=== PATIENT | female | born 1965 | race Caucasian/White ===

== ENCOUNTER → 2019-03-23 | Outpatient (CLI) | payer OTHER ==
--- NOTE | 2019-03-23 12:41 | Diagnostic Imaging Report ---
INDICATION: Followup fracture. COMPARISON: None. FINDINGS: Multiple radiographic views of the right toes were obtained. No appreciable fracture or dislocation of the toes are identified on today's exam. Note is made, however, that evaluation is somewhat suboptimal secondary to superimposition of the osseous structures on multiple views. Joint spaces appear appropriate. No unexpected radiopaque foreign bodies are seen. IMPRESSION: 1. No definite acute osseous abnormality of the toes of the right foot, but again evaluation is obscured by limitations of positioning. Dictated by: Dictated on workstation # [id number]
== END ==
LOC: RAD FS 10:52
PROVIDERS: ATTEND Nurse Practitioner
DX: M79.674 Pain in right toe(s) (principal)
CPT/HCPCS: 73660

== ENCOUNTER → 2020-10-17 | Outpatient (CLI) | payer OTHER ==
--- NOTE | 2020-10-17 10:45 | Diagnostic Imaging Report ---
EXAMINATION: Right hip at 10:00 AM INDICATION: Right hip pain AP and lateral views were obtained. There are no prior studies available for comparison. There is no fracture, dislocation or acute bony abnormality evident. The hip joint is well maintained as is the right sacroiliac joint. The soft tissues are unremarkable. IMPRESSION: There is no evidence for an acute bony abnormality. Dictated by: Dictated on workstation # [id number]
== END ==
LOC: RAD FS 09:52
PROVIDERS: ATTEND Nurse Practitioner
DX: M25.551 Pain in right hip (principal)
CPT/HCPCS: 73502

== ENCOUNTER 2021-11-13 04:28 | Inpatient (IN) | payer OTHER ==
[~2021-11-13] VITALS: Ht 172 cm; Wt 69.0 kg
--- OUTSIDE RECORDS SUMMARY | 2021-11-13 04:33 | XMS REPORT | Clinical Summary ---
Author Author [facility] Organization [facility] Address Unknown Phone Unavailable Care Team Providers Care Spikemaking Supervisor Name Role Phone Ann-Marie Ramirez MD PCP Allergies Not on File Medications Not on file Active Problems Not on file Social History Date Tobacco Use Types Packs/Day Years Used Never Assessed Sex Assigned at Date Recorded Not on file Last Filed Vital Signs Not on file Plan of Treatment Health Maintenance Due Date Last Done Comments Td/Tdap# 1966 Cervical Cancer Screening 1987 via Pap Smear Colorectal Screening via 2016 Colonoscopy Zoster Vaccine# (1 of 2) 2016 Influenza Vaccine (#1) 2021 08/21/2019, 08/15/2018, 08/16/2017, Additional history exists COVID-19 Vaccine (3 - 08/20/2021 02/18/2021, Booster for Moderna 01/21/2021 series) Mammogram Screening 07/23/2023 07/23/2021, 06/10/2020, 06/07/2019, Additional history exists Pneumococcal Vaccine: Aged Out No longer eligib le based on patient's age to Pediatrics (0 to 5 Years) complete this topic and At-Risk Patients (6 to 64 Years) Results Not on filefrom Last 3 Months Insurance Type Payer Benefit Subscriber ID Effective Phone Address Plan / Dates Group [employer] [id number] 2015-P [phone] [address] [address] [place] [address] Advance Directives For more information, please contact: [phone] Patient Scroll Shear Operator Explanation Type Date Recorded Advance Directives and Living Will Power of Tobacco Sorter Health Care Directive Care Teams Start Date End Date Spikemaking Supervisor Relationship Specialty 07/23/21 Ann-Marie Ramirez MD PCP - General Obstetrics [id number] [place], [place] [id number]
--- NOTE | 2021-11-13 04:58 | Diagnostic Imaging Report ---
INDICATION: CP COMPARISON: None FINDINGS: Single frontal view of the chest demonstrates normal heart size and pulmonary vascularity. The lungs are well aerated and clear. No large pleural effusion or pneumothorax is seen. The visualized osseous structures show no acute abnormalities. IMPRESSION: 1. No acute cardiopulmonary process. Dictated by: Dictated on workstation # [id number]
[2021-11-13] MEDS ORDERED: LORazepam INJ 2 MG/ML (ATIVAN) VIAL IVP ONE (05:00)
[2021-11-13] MEDS ORDERED: cloNIDine 0.1 MG (CATAPRES) TAB PO ONE (05:00)
[2021-11-13 05:17] LABS: HEMATOCRIT 41 % (35-52); HEMOGLOBIN 13.3 g/dL (11.5-16.0); MEAN CORPUSCULAR HEMOGLOBIN 27 pg (25-34); MEAN CORPUSCULAR HGB CONC 32 g/dL (32-36); MEAN CORPUSCULAR VOLUME 84 fL (80-99)
[2021-11-13 05:18] LABS: BASOPHILS # (AUTO) 0.1 10^3/uL (0.0-0.1); BASOPHILS % (AUTO) 1 % (0-10); EOSINOPHILS # (AUTO) 0.4 10^3/uL (0.0-0.3); EOSINOPHILS % (AUTO) 6 % (0-10); LYMPHOCYTES # (AUTO) 2.8 X 10^3 (1.0-4.0); LYMPHOCYTES % (AUTO) 40 % (12-44); MEAN PLATELET VOLUME 10.1 fL (9.0-12.2); MONOCYTES # (AUTO) 0.4 X 10^3 (0.0-1.0); MONOCYTES % (AUTO) 6 % (0-12); NEUTROPHILS # (AUTO) 3.2 X 10^3 (1.8-7.8); NEUTROPHILS % (AUTO) 46 % (42-75); PLATELET COUNT 242 10^3/uL (130-400)
[2021-11-13 05:36] LABS: ALKALINE PHOSPHATASE 87 U/L (40-136); BILIRUBIN,TOTAL 0.3 MG/DL (0.1-1.0); BUN/CREATININE RATIO 17; CALCIUM 9.3 MG/DL (8.5-10.1); CARBON DIOXIDE 22 MMOL/L (21-32); CHLORIDE 104 MMOL/L (98-107); CREATININE SERUM 0.78 MG/DL (0.60-1.30); GFR ESTIMATED 77; GLUCOSE 104 MG/DL (70-105); POTASSIUM 3.7 MMOL/L (3.6-5.0); SODIUM 141 MMOL/L (135-145)
[2021-11-13 05:37] LABS: ALANINE AMINOTRANSFERASE 20 U/L (0-55); ALBUMIN 4.4 GM/DL (3.2-4.5); TOTAL PROTEIN 7.1 GM/DL (6.4-8.2)
[2021-11-13] MEDS: NITROGLYCERIN 0.4 MG SL TABS BTL 25'S SL PRN ×2 (05:52→05:58)
--- NOTE | 2021-11-13 06:00 | ED Chest Pain ---
General Chief Complaint: Chest Pain Stated Complaint: CHEST PAIN Nursing Triage Note: pt arrives per POV w/ family c/o CP midsternal onset at approximately 2300 yesterday evening. Source: patient Exam Limitations: no limitations History of Present Illness Date Seen by Provider: Nov 13, 2021 Time Seen by Provider: 04:30 Initial Comments Patient is a 56-year-old female who presents with intermittent chest pressure for the past several weeks. Chest pressure is substernal rated as mild and radiates to left arm. This evening's episode started approximately 5 hours p rior to ED arrival. Patient reports feeling anxious after chest pressure began. She denies shortness of breath, nausea vomiting sweats. Symptoms are not reproducible with position change movement or deep breathing. They are not made worse with exertion or improved by rest. No fevers or chills. No cough or sore throat. Denies leg pain or swelling. No other acute symptoms or complaints. No history of CAD. Denies history of hypertension, dyslipidemia, or diabetes. No family history of early coronary disease. Patient is a non-smoker. Timing/Duration: intermittent Severity/Quality: mild Location: other Radiation: other Activities at Onset: other Prior CP/Workup: other Modifying Factors: improves with other Allergies and Home Medications Allergies Coded Allergies: No Known Drug Allergies (Unverified , 11/13/21) Patient Home Medication List Home Medication List Reviewed: Yes Review of Systems Review of Systems Constitutional: see HPI EENTM: See HPI Respiratory: See HPI Cardiovascular: See HPI Gastrointestinal: See HPI Genitourinary: See HPI Musculoskeletal: see HPI Skin: see HPI Psychiatric/Neurological: See HPI Endocrine: See HPI Hematologic/Lymphatic: See HPI All Other Systems Reviewed Negative Unless Noted: Yes Past Qdbfczc-Hvwjrj-Dqvfsd Hx Patient Social History Tobacco Use?: Yes Substance use?: No Alcohol Use?: Yes Alcohol Frequency: Once in a while Pt feels they are or have been: No Immunizations Up To Date Influenza Vaccine Up-to-Date: Yes; Up-to-Date First/Initial COVID19 Vaccinat: 02-26 Second COVID19 Vaccination Eugenio: 03-28 COVID19 Vaccine Coffee Sommelier: Modernbarry Physical Exam Vital Signs Vital Signs - First Documented 11/13/21 11/13/21 05:10 05:54 Temp 36.6 Pulse 66 Resp 20 B/P (MAP) 190/81 (117) Pulse Ox 97 O2 Delivery Room Air Capillary Refill : Less Than 3 Seconds Height, Weight, BMI Height: '" Weight: lbs. oz. kg; 23.00 BMI Method: General Appearance: No Apparent Distress, Anxious HEENT: Pharynx Normal Neck: Normal Inspection, Non Tender Respiratory: Chest Non Tender, Lungs Clear Cardiovascular: Regular Rate, Rhythm, No Murmur Gastrointestinal: Non Tender, Soft Extremity: Normal Inspection Neurologic/Psychiatric: Alert, Oriented x3 Skin: Normal Color Focused Exam Sepsis Stage: Ruled Out Progress/Results/Core Measures Results/Orders Lab Results Laboratory Tests Test 11/13/21 04:40 Range/Units White Blood Count 7.0 4.3-11.0 10^3/uL Red Blood Count 4.90 3.80-5.11 10^6/uL Hemoglobin 13.3 11.5-16.0 g/dL Hematocrit 41 35-52 % Mean Corpuscular Volume 84 80-99 fL Mean Corpuscular Hemoglobin 27 25-34 pg Mean Corpuscular Hemoglobin Concent 32 32-36 g/dL Red Cell Distribution Width 13.2 10.0-14.5 % Platelet Count 242 130-400 10^3/uL Mean Platelet Volume 10.1 9.0-12.2 fL Immature Granulocyte % (Auto) 0 % Neutrophils (%) (Auto) 46 42-75 % Lymphocytes (%) (Auto) 40 12-44 % Monocytes (%) (Auto) 6 0-12 % Eosinophils (%) (Auto) 6 0-10 % Basophils (%) (Auto) 1 0-10 % Neutrophils # (Auto) 3.2 1.8-7.8 X 10^3 Lymphocytes # (Auto) 2.8 1.0-4.0 X 10^3 Monocytes # (Auto) 0.4 0.0-1.0 X 10^3 Eosinophils # (Auto) 0.4 H 0.0-0.3 10^3/uL Basophils # (Auto) 0.1 0.0-0.1 10^3/uL Immature Granulocyte # (Auto) 0.0 0.0-0.1 10^3/uL Sodium Level 141 135-145 MMOL/L Potassium Level 3.7 3.6-5.0 MMOL/L Chloride Level 104 98-107 MMOL/L Carbon Dioxide Level 22 21-32 MMOL/L Anion Gap 15 H 5-14 MMOL/L Blood Urea Nitrogen 13 7-18 MG/DL Creatinine 0.78 0.60-1.30 MG/DL Estimat Glomerular Filtration Rate 77 BUN/Creatinine Ratio 17 Glucose Level 104 70-105 MG/DL Calcium Level 9.3 8.5-10.1 MG/DL Corrected Calcium 9.0 8.5-10.1 MG/DL Total Bilirubin 0.3 0.1-1.0 MG/DL Aspartate Amino Transf (AST/SGOT) 20 5-34 U/L Alanine Aminotransferase (ALT/SGPT) 20 0-55 U/L Alkaline Phosphatase 87 40-136 U/L Troponin I < 0.30 <0.30 NG/ML Total Protein 7.1 6.4-8.2 GM/DL Albumin 4.4 3.2-4.5 GM/DL My Orders Orders - FELIX ARZOLA DO Cbc With Automated Diff (11/13/21 04:46) Comprehensive Metabolic Panel (11/13/21 04:46) Troponin I Fs (11/13/21 04:46) Chest 1 View Ap/Pa Only (11/13/21 04:46) Ekg-Prn For Chest Pain Or Rhyt (11/13/21 04:46) Lorazepam Injection (Ativan Injection) (11/13/21 05:00) Clonidine Tablet (Catapres Tablet) (11/13/21 05:00) Nitroglycerin 0.4 Mg Btl 25's (Nitrostat (11/13/21 05:45) Ondansetron Injection (Zofran Injectio (11/13/21 06:15) Ondansetron Injection (Zofran Injectio (11/13/21 06:11) Medications Given in ED Current Medications Medications Dose Ordered Sig/Bessie Route Start Time Stop Time Status Last Admin Dose Admin Clonidine HCl 0.1 mg ONCE ONCE PO 11/13/21 05:00 11/13/21 05:01 DC 11/13/21 05:05 0.1 MG Lorazepam 0.5 mg ONCE ONCE IVP 11/13/21 05:00 11/13/21 05:01 DC 11/13/21 05:04 0.5 MG Nitroglycerin 1 TAB Q 5 MIN X 3 NEEDED PRN SL 11/13/21 05:45 11/13/21 05:58 0.4 MG Ondansetron HCl 4 mg ONCE ONCE IVP 11/13/21 06:15 11/13/21 06:16 DC 11/13/21 06:12 4 MG Vital Signs/I&O 11/13/21 11/13/21 11/13/21 11/13/21 05:10 05:30 05:54 05:59 Temp 36.6 36.6 Pulse 66 66 71 78 Resp 20 20 18 17 B/P (MAP) 190/81 (117) 190/81 133/78 127/75 Pulse Ox 97 94 O2 Delivery Room Air Blood Pressure Mean: 96 Departure Communication (Admissions) EKG: Normal sinus rhythm, no acute ST-T wave changes Chest x-ray: No acute cardiopulmonary disease per radiology report Atypical chest pain with anxiety component. Ativan given without improvement. Patient took aspirin prior to ED arrival. Nitroglycerin x2 given with resolution of chest pressure. EKG, troponin unremarkable. Blood pressure stable. Dr. Collado to admit to [facility]. Impression Primary Impression: Chest pain Disposition: ADMITTED INPATIENT Condition: Stable Admissions Decision to Admit Reason: Admit from ER (General) Decision to Admit/Date: Nov 13, 2021 Time/Decision to Admit Time: 06:30 Departure-Patient Inst. Referrals: [facility] (PCP) Primary Care Physician GARRY WHITEHEAD APRN (Family) Primary Care Physician FELIX ARZOLA DO Nov 13, 2021 06:00
[2021-11-13] MEDS ORDERED: ONDANSETRON 4 MG/2 ML (SDV) Z0FRAN ONE (06:11)
[2021-11-13] MEDS ORDERED: ONDANSETRON 4 MG/2 ML (SDV) Z0FRAN IVP ONE (06:15)
[2021-11-13] MEDS ORDERED: NS IV 1000 ML 1,000 ML IV SCH (10:00)
[2021-11-13] MEDS ORDERED: PATIENT MAY USE OWN MEDS, ALL PO SCH (10:00)
[2021-11-13] MEDS ORDERED: ONDANSETRON 4 MG/2 ML (SDV) Z0FRAN IVP PRN (10:00)
[2021-11-13] MEDS ORDERED: morphine INJ 4 MG/ML 1 ML (VIAL/SYRINGE) IV PRN (10:00)
[2021-11-13] MEDS ORDERED: NITROGLYCERIN 0.4 MG SL TABS BTL 25'S SL PRN (10:00)
[2021-11-13 10:16] VITALS: BP 114/71
[2021-11-13 10:31] VITALS: BP 126/82
[2021-11-13 10:46] VITALS: BP 117/66
[2021-11-13 11:16] VITALS: BP 107/71
[2021-11-13 11:37] VITALS: BP 136/87
[2021-11-13 12:23] VITALS: BP 138/88
--- NOTE | 2021-11-13 12:33 | Consultation-Cardiology ---
HPI-Cardiology Cardiology Consultation Date of Consultation 11/13/21 Date of Admission Time Seen by Provider: 12:28 Indication: Chest pain HPI 56-year-old lady with history of hypertension, has been having chest pain described as dull in nature in the retrosternal area lasting for up to 50 minutes, waxing and waning, came into the emergency room this morning, EKG and cardiac enzymes did not show any acute abnormality. On my evaluation she was feeling better denied any active chest pain. Home Medications & Allergies Allergies: Coded Allergies: No Known Drug Allergies (Unverified , 11/13/21) Home Medication List Reviewed: Yes EAE-Asxyoy-Rplinl Hx Patient Social History Marital Status: Employed/Student: employed Smoking Status: Never a Smoker Have you traveled recently?: No Alcohol Use?: No Past Medical History Discussed below Family Medical History Family Medical Hx Family history of atrial fibrillation Review of Systems-General Review of Systems Constitutional: see HPI EENTM: see HPI, no symptoms reported Respiratory: no symptoms reported, see HPI Cardiovascular: see HPI, chest pain; No edema, No Hx of Intervention, No palpitations, No syncope, No vascular heart diseas, No other Gastrointestinal: no symptoms reported, see HPI Genitourinary: no symptoms reported, see HPI Musculoskeletal: see HPI Skin: see HPI Psychiatric/Neurological: See HPI All Other Systems Reviewed Negative Unless Noted: Yes Reviewed Test Results Reviewed Test Results Lab Laboratory Tests Test 11/13/21 04:40 11/13/21 10:30 Range/Units White Blood Count 7.0 4.3-11.0 10^3/uL Red Blood Count 4.90 3.80-5.11 10^6/uL Hemoglobin 13.3 11.5-16.0 g/dL Hematocrit 41 35-52 % Mean Corpuscular Volume 84 80-99 fL Mean Corpuscular Hemoglobin 27 25-34 pg Mean Corpuscular Hemoglobin Concent 32 32-36 g/dL Red Cell Distribution Width 13.2 10.0-14.5 % Platelet Count 242 130-400 10^3/uL Mean Platelet Volume 10.1 9.0-12.2 fL Immature Granulocyte % (Auto) 0 % Neutrophils (%) (Auto) 46 42-75 % Lymphocytes (%) (Auto) 40 12-44 % Monocytes (%) (Auto) 6 0-12 % Eosinophils (%) (Auto) 6 0-10 % Basophils (%) (Auto) 1 0-10 % Neutrophils # (Auto) 3.2 1.8-7.8 X 10^3 Lymphocytes # (Auto) 2.8 1.0-4.0 X 10^3 Monocytes # (Auto) 0.4 0.0-1.0 X 10^3 Eosinophils # (Auto) 0.4 H 0.0-0.3 10^3/uL Basophils # (Auto) 0.1 0.0-0.1 10^3/uL Immature Granulocyte # (Auto) 0.0 0.0-0.1 10^3/uL Sodium Level 141 135-145 MMOL/L Potassium Level 3.7 3.6-5.0 MMOL/L Chloride Level 104 98-107 MMOL/L Carbon Dioxide Level 22 21-32 MMOL/L Anion Gap 15 H 5-14 MMOL/L Blood Urea Nitrogen 13 7-18 MG/DL Creatinine 0.78 0.60-1.30 MG/DL Estimat Glomerular Filtration Rate 77 BUN/Creatinine Ratio 17 Glucose Level 104 70-105 MG/DL Calcium Level 9.3 8.5-10.1 MG/DL Corrected Calcium 9.0 8.5-10.1 MG/DL Total Bilirubin 0.3 0.1-1.0 MG/DL Aspartate Amino Transf (AST/SGOT) 20 5-34 U/L Alanine Aminotransferase (ALT/SGPT) 20 0-55 U/L Alkaline Phosphatase 87 40-136 U/L Troponin I < 0.30 < 0.028 <0.028 NG/ML Total Protein 7.1 6.4-8.2 GM/DL Albumin 4.4 3.2-4.5 GM/DL Physical Exam Physical Exam Vital Signs Vital Signs - First Documented 11/13/21 11/13/21 05:10 05:54 Temp 36.6 Pulse 66 Resp 20 B/P (MAP) 190/81 (117) Pulse Ox 97 O2 Delivery Room Air Capillary Refill : Less Than 3 Seconds Height, Weight, BMI Height: '" Weight: lbs. oz. kg; 23.32 BMI Method: General Appearance: No Apparent Distress, Anxious Eyes: Bilateral Eye Normal Inspection, Bilateral Eye PERRL, Bilateral Eye EOMI HEENT: Pharynx Normal Neck: Normal Inspection, Non Tender Respiratory: Chest Non Tender, Lungs Clear Cardiovascular: Regular Rate, Rhythm, No Murmur Gastrointestinal: Non Tender, Soft Back: Normal Inspection, No CVA Tenderness, No Vertebral Tenderness Extremity: Normal Inspection Neurologic/Psychiatric: Alert, Oriented x3 Skin: Normal Color Lymphatic: No Adenopathy A/P-Cardiology Admission Diagnosis Chest pain nonspecific etiology Hypertension Family history of atrial fibrillation Anxiety Assessment/Plan Chest pain nonspecific etiology resembling angina, patient underwent stress test showing no significant ischemic changes, EKG and echo were normal. I discussed with her the management plan, chest pain is probably noncardiac. Recommend starting PPI and follow-up as an outpatient Hypertension, monitor blood pressure Family history of atrial fibrillation Anxiety Clinical Quality Measures AMI/AHF: ASA po Prior to arrival: Yes (Pt took 325mg @ home) SEBASTIEN MILAN MD Nov 13, 2021 12:33
--- NOTE | 2021-11-13 12:44 | Short Stay Summary ---
Discharge Summary Hospital Course Final Diagnosis: Chest pain, HTN Hospital Course Date of Admission: Nov 13, 2021 at 09:28 Admission Diagnosis : [facility] Date [facility]: 11/13/21 Discharge Diagnosis: Chest pain- Normal stress test Normal echocardiogram Hypertension- improved Hospital Course: 56 yo female had chest pain that would not resolve, radiating to left arm and with tingling so she came to the ER. She has had intermittent chest pain in the past but not this long lasting, and also has had intermittent palpitations. Her blood pressure was also high, and normally is not. She has no history of hypertension, smoking, heart disease or diabetes. She had normal echo and normal stress test, recommend considering testing for pheochromocytoma given her paroxysmal pain and markedly elevated initial blood pressure, also could con machine heel builder Holter or Loop monitoring due to her palpitations and elevated blood pressure. Labs and Pending Lab Test: Laboratory Tests 11/13/21 04:40: White Blood Count 7.0, Red Blood Count 4.90, Hemoglobin 13.3, Hematocrit 41, Mean Corpuscular Volume 84, Mean Corpuscular Hemoglobin 27, Mean Corpuscular Hemoglobin Concent 32, Red Cell Distribution Width 13.2, Platelet Count 242, Mean Platelet Volume 10.1, Immature Granulocyte % (Auto) 0, Neutrophils (%) (Auto) 46, Lymphocytes (%) (Auto) 40, Monocytes (%) (Auto) 6, Eosinophils (%) (Auto) 6, Basophils (%) (Auto) 1, Neutrophils # (Auto) 3.2, Lymphocytes # (Auto) 2.8, Monocytes # (Auto) 0.4, Eosinophils # (Auto) 0.4H, Basophils # (Auto) 0.1, Immature Granulocyte # (Auto) 0.0, Sodium Level 141, Potassium Level 3.7, Chloride Level 104, Carbon Dioxide Level 22, Anion Gap 15H, Blood Urea Nitrogen 13, Creatinine 0.78, Estimat Glomerular Filtration Rate 77, BUN/Creatinine Ratio 17, Glucose Level 104, Calcium Level 9.3, Corrected Calcium 9.0, Total Bilirubin 0.3, Aspartate Amino Transf (AST/SGOT) 20, Alanine Aminotransferase (ALT/SGPT) 20, Alkaline Phosphatase 87, Troponin I < 0.30, Total Protein 7.1, Albumin 4.4 11/13/21 10:30: Troponin I < 0.028 Assessment/Pt Instructions Follow up with a primary physician within a week or two to discuss further testing. Discharge Instructions Discharge Diet: No Restrictions Activity as Tolerated: Yes Discharge Physical Examination General Appearance: Alert, No Acute Distress Respiratory: Clear to Auscultation, Normal Air Movement Cardiovascular: Regular Rate, No Murmurs Abdominal: Normal Bowel Sounds, Soft Extremities: No Edema Neuro: Normal Speech Allergies: Coded Allergies: No Known Drug Allergies (Unverified , 11/13/21) Discharge Summary Date of Admission Nov 13, 2021 at 09:28 Date of Discharge Clinical Quality Measures AMI/AHF: ASA po Prior to arrival: Yes (Pt took 325mg @ home) NINA GATES MD Nov 13, 2021 12:44
== END 2021-11-13 13:17 | disposition home or self-care (01) | DRG 313 ==
LOC: EDUNIT# 04:28 → ER FS 04:29 → 4TH 09:28
PROVIDERS: ADMIT Family Medicine; ATTEND Family Medicine
DX: R07.9 Chest pain, unspecified (principal); I10 Essential (primary) hypertension; F41.9 Anxiety disorder, unspecified; Z82.49 Family history of ischemic heart disease and other diseases of the circulatory system
CPT/HCPCS: 36415; 71045; 80053; 84484; 85025; 93005; 93306; 93351